=== PATIENT | female | born 1965 | race Caucasian/White ===

== ENCOUNTER 2017-01-01 16:56 | Emergency (ER) | payer BC ==
[2017-01-01] MEDS ORDERED: ASPIRIN81 M1 PO (17:04)
[2017-01-01] MEDS ORDERED: XARELTO15 M1 PO (17:04)
[2017-01-01 18:19] LABS: BASO % 0.9 % (0-2); BASO ABSOLUTE COUNT 0.1 tho/cmm (0.0-0.2); EOS % 6.4 % (0-7); EOSINOPHIL ABSOLUTE COUNT 0.4 tho/cmm (0.0-0.7); HCT-HEMATOCRIT 38.7 % (34.0-49.0); HGB-HEMOGLOBIN 12.1 gm/dl (12.0-15.5); IMMATURE GRANULOCYTES ABSOLUTE 0.01 tho/cmm (0-0.03); IMMATURE GRANULOCYTES PERCENT 0.2 % (0-0.3); LYMPH ABSOLUTE COUNT 1.9 tho/cmm (0.8-4.5); MCH (MEAN CORPUSCULAR HGB) 29.1 pg (28.0-32.0); MCHC MEAN CORPUSCULAR HGB CONC 31.3 % (32.0-36.0); MONO % 9.1 % (0-12); MONOCYTE ABSOLUTE COUNT 0.6 tho/cmm (0.0-1.2); NEUTROPHIL ABSOLUTE COUNT 3.6 tho/cmm (1.6-8.0); NEUTROPHIL-AUTOMATED 3.6 tho/cmm (1.6-8.0); NEUTROPHILS % 54.4 % (40-80); PLATELET COUNT 311 tho/cmm (150-450); RED BLOOD COUNT 4.16 mil/cmm (4.00-5.20); RED CELL DISTRIBUTION WIDTH 12.8 % (12.4-16.4); WHITE BLOOD COUNT 6.6 tho/cmm (4.0-10.0)
[2017-01-01 18:38] LABS: ALB/GLOB RATIO 0.8 (0.8-2.0); ALBUMIN 3.4 g/dl (3.5-5.0); ALKALINE PHOSPHATASE 99 U/L (33-138); ALT/SGPT 11 U/L (12-78); ANION GAP 10 mmol/L (0-20); AST/SGOT 9 U/L (10-40); BILIRUBIN,TOTAL 0.3 mg/dl (0-1.5); BLOOD UREA NITROGEN 9 mg/dl (6-24); CALCIUM 9.2 mg/dl (8.5-10.5); CARBON DIOXIDE-VENOUS 29 mmol/L (22-32); CHLORIDE 109 mmol/l (96-110); GLUCOSE 98 mg/dL (70-110); SODIUM 144 mmol/L (135-145); eGFR VALUE FOR BLACK >90 mL/Min
== END 2017-01-01 20:03 ==
LOC: EDMED 16:56
PROVIDERS: Family Medicine
DX: I82.401 Acute embolism and thrombosis of unspecified deep veins of right lower extremity (principal); R06.02 Shortness of breath; I48.91 Unspecified atrial fibrillation; Z90.49 Acquired absence of other specified parts of digestive tract; Z90.710 Acquired absence of both cervix and uterus; Z87.891 Personal history of nicotine dependence; Z79.82 Long term (current) use of aspirin; Z79.01 Long term (current) use of anticoagulants
CPT/HCPCS: J7030; Q9967